=== PATIENT | female | born 1950 | race Caucasian/White ===

== ENCOUNTER 2017-01-08 15:57 | Emergency (ER) | payer MEDICARE, MEDICAID ==
[~2017-01-08] VITALS: Ht 162.6 cm; Wt 80.0 kg
[2017-01-08] MEDS ORDERED: METF500T4 PO (16:05)
[2017-01-08] MEDS ORDERED: ATOR20TA PO (16:05)
[2017-01-08] MEDS ORDERED: HYDROCODONE/ACETAMINOPHEN 5/325MG TABLET PO ONE (17:00)
[2017-01-08 17:32] LABS: EOSINOPHILS % 0.9 % (0.0-5.0); HEMATOCRIT. 35.9 % (36.0-48.0); HEMOGLOBIN. 12.2 g/dL (12.0-16.0); LYMPHOCYTES % 24.2 % (20.0-50.0); MEAN CORPUSCULAR HEMOGLOBIN 28.4 pg (28.0-32.0); MEAN CORPUSCULAR VOLUME 83.7 fL (81.0-99.0); MEAN PLATELET VOLUME 9.8 fl (7.4-10.4); NEUTROPHILS % 65.9 % (40.0-76.0); PLATELET 144 x1000/uL (130-400); RED BLOOD CELL COUNT 4.28 mill/uL (4.2-5.4); RED CELL DISTRIBUTION WIDTH 14.1 % (11.6-14.6)
[2017-01-08 17:49] LABS: CARBON DIOXIDE 27 mEq/L (21-32); CHLORIDE 105 mEq/L (98-107)
[2017-01-08] MEDS ORDERED: KETOROLAC 60MG/2ML VIAL IM NR (19:40)
[2017-01-08] MEDS ORDERED: IBUPROFEN 600MG TABLET PO STA (19:51)
[2017-01-08 20:06] VITALS: BP 137/56
== END 2017-01-08 20:31 | disposition home or self-care (01) ==
LOC: ER 16:16
DX: S16.1XXA Strain of muscle, fascia and tendon at neck level, initial encounter (principal); R51 Headache; M54.9 Dorsalgia, unspecified; R10.2 Pelvic and perineal pain; R10.9 Unspecified abdominal pain; M25.512 Pain in left shoulder; M79.632 Pain in left forearm; M79.642 Pain in left hand; M25.552 Pain in left hip; M79.662 Pain in left lower leg; I10 Essential (primary) hypertension; E11.9 Type 2 diabetes mellitus without complications; V49.49XA Driver injured in collision with other motor vehicles in traffic accident, initial encounter; Y93.89 Activity, other specified; Y92.410 Unspecified street and highway as the place of occurrence of the external cause; Z79.84 Long term (current) use of oral hypoglycemic drugs
CPT/HCPCS: 36415; 70450; 71260; 72125; 73060; 73090; 73130; 74177; 80053; 83690; 85025; 99285